=== PATIENT | female | born 1985 | race Hispanic/Latino ===

== ENCOUNTER 2017-04-17 16:50 | Emergency (ER) | payer SELFPAY ==
[2017-04-17 17:18] LABS: #Basophils 0.1 thou/uL (0.0-0.2); #Eosinphils 0.1 thou/uL (0.0-0.7); #Lymphocytes 2.7 thou/uL (1.20-3.40); #Monocytes 0.6 thou/uL (0.11-0.59); #Neutrophils 3.5 thou/uL (1.40-6.50); %Eosinophils 1.8 % (0.0-10.0); %Lymphocytes 38.9 % (21.0-51.0); %Monocytes 8.2 % (0.0-10.0); Mean Platelet Volume 7.5 fL (7.4-10.4); Red Blood Cell (RBC) Count 4.48 mill/uL (4.20-5.40); White Blood Cell (WBC) Count 6.9 thou/uL (4.8-10.8)
[2017-04-17 17:38] LABS: ALT (SGPT) 9 U/L (8-55); AST (SGOT) 12 U/L (5-34); Alkaline Phosphatase 63 U/L (40-150); Anion Gap 10 mmol/L (10-20); BUN (Urea Nitrogen) 12 mg/dL (7.0-18.7); Bilirubin, Total 0.2 mg/dL (0.2-1.2); Calc. Creatinine Clearance 0 mL/min (70-130); Calcium 9.1 mg/dL (7.8-10.44); Carbon Dioxide 28 mmol/L (22-29); Chloride 104 mmol/L (98-107); Estimated GFR-MDRD Greater than 90; Globulin 3.2 g/dL (2.4-3.5); Lipase 19 U/L (8-78); Protein, Total 7.5 g/dL (6.0-8.3)
[2017-04-17 18:42] LABS: Bilirubin Negative (Negative); Blood, Urine Negative (Negative); Glucose, Urine (Dipstick) Negative (Negative); Ketone, Urine Negative (Negative); Nitrite Negative (Negative); Protein, Urine (Dipstick) Negative (Neg-Trace)
--- NOTE | 2017-04-17 19:03 | RAD ---
CHEST TWO VIEWS: History: Cough. Comparison: 09-07-10 FINDINGS: Heart size and mediastinum are within normal limits. The lungs are clear of infiltrates. No acute isai [place] findings. Old right anterior sixth rib fracture present. IMPRESSION: 1. No active intrathoracic disease. 2. Old appearing anterior sixth rib fracture. POS: [facility]
== END 2017-04-17 20:12 | disposition home or self-care (01) ==
LOC: ERS 16:50
DX: M84.48XA Pathological fracture, other site, initial encounter for fracture (principal); F17.210 Nicotine dependence, cigarettes, uncomplicated
CPT/HCPCS: 36415; 71020; 80053; 81003; 81025; 83690; 85025

== ENCOUNTER 2021-04-15 13:35 | Emergency (ER) | payer OTHER, SELFPAY | END 2021-04-15 15:30 | disposition home or self-care (01) | LOC: ERS 13:35 | DX: S82.831A Other fracture of upper and lower end of right fibula, initial encounter for closed fracture (principal); F17.210 Nicotine dependence, cigarettes, uncomplicated; V43.62XA Car passenger injured in collision with other type car in traffic accident, initial encounter | CPT/HCPCS: 29515 ==

== ENCOUNTER 2021-05-02 18:58 | Emergency (ER) | payer SELFPAY | END 2021-05-02 22:39 | disposition home or self-care (01) | LOC: ERS 18:58 | DX: M79.661 Pain in right lower leg (principal); F17.210 Nicotine dependence, cigarettes, uncomplicated ==